=== PATIENT | female | born 1935 | race Hispanic/Latino ===

== ENCOUNTER 2023-03-30 17:58 | Emergency (ER) | payer MEDICARE ==
[~2023-03-30] VITALS: Ht 152.4 cm; Wt 75.8 kg
[~2023-03-30 17:58] MED LIST: ASPIR 8181 MG PO; ATORVASTATIN CA10 MG PO; CITALOPRAM HBR20 MG PO; METOPROLOL TART25 MG PO; PLAVIX75 MG PO; RANEXA500 MG PO
[2023-03-30] MEDS ORDERED: OXYBUTYNIN CHLOR5 MG PO (18:18)
[2023-03-30] MEDS ORDERED: ALLOPURINOL100 MG PO (18:18)
[2023-03-30] MEDS ORDERED: NITROSTAT0.4 MG SL (18:18)
[2023-03-30] MEDS ORDERED: CEFTRIAXONE 1 GM VIAL ONE (18:57)
[2023-03-30] MEDS ORDERED: CEFTRIAXONE 1 GM VIAL IV ONE (19:00)
[2023-03-30] MEDS ORDERED: CEFDINIR300 MG PO (19:51)
[2023-03-30 20:08] VITALS: O2SAT 97
== END 2023-03-30 20:15 | disposition home or self-care (01) ==
LOC: FSED 18:03
DX: R10.12 Left upper quadrant pain (principal); N39.0 Urinary tract infection, site not specified; N28.9 Disorder of kidney and ureter, unspecified; K76.89 Other specified diseases of liver; I10 Essential (primary) hypertension; I25.10 Atherosclerotic heart disease of native coronary artery without angina pectoris; E78.5 Hyperlipidemia, unspecified; R94.31 Abnormal electrocardiogram [ECG] [EKG]; Z95.5 Presence of coronary angioplasty implant and graft; Z85.43 Personal history of malignant neoplasm of ovary
CPT/HCPCS: 71046; 74176; 80053; 82553; 84484; 85025; 93005; 99284; J0696